=== PATIENT | female | born 1980 | race African-American/Black ===

== ENCOUNTER 2016-10-03 21:34 | Emergency (ER) | payer SELFPAY ==
[~2016-10-03] VITALS: Ht 165.1 cm; Wt 59.1 kg
[2016-10-03 21:37] VITALS: BP 122/86
== END 2016-10-03 22:35 | disposition left against medical advice (07) ==
LOC: EMS 21:36
DX: Z00.8 Encounter for other general examination (principal); Z53.21 Procedure and treatment not carried out due to patient leaving prior to being seen by health care provider

== ENCOUNTER 2016-11-27 20:48 | Emergency (ER) | payer SELFPAY ==
[~2016-11-27] VITALS: Ht 165.1 cm; Wt 58.6 kg
[2016-11-27 21:11] LABS: BASOPHILS # (AUTO) 0.05 K/uL (0.00-0.20); BASOPHILS % (AUTO) 0.6 % (0.0-2.0); EOSINOPHILS # (AUTO) 0.33 K/uL (0.00-0.70); EOSINOPHILS % (AUTO) 4.25 % (1.0-6.0); HEMATOCRIT 40.9 % (36-46); LYMPHOCYTES # (AUTO) 1.9 K/uL (1.0-4.8); MEAN CORPUSCULAR HGB CONC 31.8 G/dL (31.0-37.0); MEAN CORPUSCULAR VOLUME 91 fL (80-100); MONOCYTES # (AUTO) 0.5 K/uL (0.1-1.0); MONOCYTES % (AUTO) 6.1 % (2.0-9.0); RED BLOOD CELL COUNT(AUTO) 4.49 MIL/uL (4.00-5.20); RED CELL DISTRIBUTION WIDTH 13.4 % (11.5-14.5); WHITE BLOOD COUNT (AUTO) 7.8 K/uL (4.5-11.0)
[2016-11-27 21:39] LABS: PLATELET COUNT (AUTO) 263 K/uL (150-450)
[2016-11-27 22:06] VITALS: BP 106/52
== END 2016-11-27 22:53 | disposition home or self-care (01) ==
LOC: EMS 20:50
DX: N93.8 Other specified abnormal uterine and vaginal bleeding (principal)
CPT/HCPCS: 99284